=== PATIENT | male | born 1950 | race Caucasian/White ===

== ENCOUNTER → 2021-12-01 | Outpatient (CLI) | payer MEDICARE ==
[~2021-12-01] MED LIST: ASPIRIN ADULT L81 M1 PO; FISH OIL1000 MG PO; NEXIUM20 M1 PO; NEXIUM40 MG/PACK PO; PRILOSEC20 MG PO; PRILOSEC40 MG PO
== END | disposition home or self-care (01) ==
LOC: RAD 10:46
PROVIDERS: ATTEND Nurse Practitioner Family
DX: R07.81 Pleurodynia (principal)

== ENCOUNTER → 2022-01-04 | Outpatient (CLI) | payer MEDICARE ==
[2022-01-04 15:20] LABS: BUN 17 mg/dl (7-24); CHLORIDE 110 mmol/L (98-107); POTASSIUM 3.5 mmol/L (3.5-5.1); SODIUM 139 mmol/L (136-145)
== END ==
LOC: LAB 14:39
PROVIDERS: ATTEND Nurse Practitioner Family
DX: I10 Essential (primary) hypertension (principal); Z01.812 Encounter for preprocedural laboratory examination

== ENCOUNTER → 2022-01-05 | Outpatient (CLI) | payer MEDICARE | END | disposition home or self-care (01) | LOC: CT 12-30 13:00 | PROVIDERS: ATTEND Nurse Practitioner Family | DX: R07.89 Other chest pain (principal); N28.89 Other specified disorders of kidney and ureter ==

== ENCOUNTER 2024-09-12 11:51 | Emergency (ER) | payer MEDICARE ==
[~2024-09-12] VITALS: Ht 170.1 cm; Wt 79.4 kg
[2024-09-12 12:42] LABS: BASO % 0.4 % (0.0-1.0); EOS # 0.3 10*3/uL (0.0-0.4); HEMATOCRIT 43.2 % (42.0-52.0); MEAN CELL VOLUME 86.7 fl (80.0-94.0); MEAN CORPUSCULAR HGB 30.9 pg (27.0-31.0); MEAN CORPUSCULAR HGB CONC 35.6 g/dl (33.0-37.0); MEAN PLATELET VOLUME 9.7 fl (9.6-12.3); MONO # 0.8 10*3/uL (0.1-1.0); MONO % 9.1 % (3.0-9.0); NEUT # 4.5 10*3/uL (2.3-7.9); NEUT % 54.2 % (47.0-73.0); PLATELET COUNT AUTOMATED 263 10*3/uL (130-400); RED BLOOD COUNT 4.98 10*6/uL (4.50-5.90); RED CELL DISTRI WIDTH 12.8 % (0-14.5); WHITE BLOOD COUNT 8.2 10*3/uL (4.8-10.8)
[2024-09-12] MEDS ORDERED: SODIUM CHLORIDE 0.9% 1,000 ML IV ONE (13:05)
[2024-09-12 13:06] LABS: ALKALINE PHOSPHATASE 54 U/L (46-116); BUN 12 mg/dl (9-23); CHLORIDE 103 mmol/L (98-107); POTASSIUM 3.4 mmol/L (3.4-5.1); SGPT/ALT 20 U/L (5-49); TOTAL PROTEIN 7.4 gm/dL (6.0-8.0)
[2024-09-12 13:09] LABS: BILIRUBIN Negative (Negative); BLOOD Negative (Negative); CLARITY Clear (Clear); COLOR Yellow (Yellow); GLUCOSE Negative (Negative); KETONE Negative (Negative); LEUKO ESTERASE 2+ (Negative); NITRITE Negative (Negative); SPECIFIC GRAVITY 1.015 (1.001-1.030)
[2024-09-12 13:31] LABS: BACTERIA 2+; WBC 21-30 wbc/hpf (0-5)
[2024-09-12] MEDS ORDERED: Tamsulosin Hydrochloride 0.4 MG CAP PO ONE (13:50)
[2024-09-12] MEDS ORDERED: Ciprofloxacin Hydrochloride 500 MG TAB PO ONE (13:50)
[2024-09-12] MEDS ORDERED: CIPRO500 MG PO (13:54)
[2024-09-12] MEDS ORDERED: FLOMAX0.4 MG PO (13:54)
== END 2024-09-12 14:21 | disposition home or self-care (01) ==
LOC: ED 11:51
PROVIDERS: Nurse Practitioner
DX: N39.0 Urinary tract infection, site not specified (principal); N40.0 Benign prostatic hyperplasia without lower urinary tract symptoms; K21.9 Gastro-esophageal reflux disease without esophagitis; Z79.899 Other long term (current) drug therapy; Z79.82 Long term (current) use of aspirin; Z90.49 Acquired absence of other specified parts of digestive tract; Z87.891 Personal history of nicotine dependence

== ENCOUNTER → 2025-05-16 | Outpatient (CLI) | payer MEDICARE ==
[~2025-05-16] MED LIST changes: +CIPRO500 MG PO; +FLOMAX0.4 MG PO
== END | disposition home or self-care (01) ==
LOC: LAB 13:18
PROVIDERS: ATTEND Nurse Practitioner Primary Care
DX: R97.20 Elevated prostate specific antigen [PSA] (principal)